=== PATIENT | female | born 2000 | race African-American/Black ===

== ENCOUNTER 2019-11-16 19:05 | Emergency (ER) | payer OTHER, SELFPAY ==
[2019-11-16 19:18] VITALS: BP 153/89; PULSE 94; RESP 16; TEMP 37.4; O2SAT 99
--- NOTE | 2019-11-16 19:59 | ED.GENADULT ---
HPI - General Adult General Chief complaint: Back Pain/Injury Stated complaint: back pain Time Seen by Provider: 11/16/19 19:59 Source: patient and RN notes reviewed Mode of arrival: ambulatory Limitations: no limitations History of Present Illness HPI narrative: 19-year-old female presents with complaints of diffused mid-upper back pain for 3 hours. Advil 400mg, last 1 hours ago with some relief. Denies new injuries or falls. Denies radiating pain, numbness, or tingling. Denies fever or chills. No upper or lower extremity pain or weakness. Exacerbating factors consist of prolong standing and bending. Denies nausea, vomiting, or abdominal pain. 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 No flank pain or hematuria or dysuria. Claribel denies being , LMP 11/05/19 and on control. The patient reports she have not been diagnosed with COVID-19. The patient reports she is not waiting for the results of a COVID-19 lab test. The patient reports she do not have fever, chills, weakness, fatigue, myalgia, or facial swelling. The patient reports she do not have a new or worsening cough or shortness of breath. Denies chest pain. The patient reports she do not have any rhinorrhea, congestion, sore throat, nausea, vomiting, abdominal pain, and diarrhea. Tolerating po intake well. Denies recent traveling. Denies concerns for COVID-19 or exposures been home since [id number] order except for essential household needs and return home. At this time, patient is not suspected of having COVID-19. Some parts of this dictation were generated by voice recognition software and may contain typographical and/or grammatical inaccuracies. Related Data Home Medications Medication Instructions Recorded Confirmed norethindrone ac-eth estradiol tablet 11/16/19 [ (21)] norethindrone ac-eth estradiol tablet 11/16/19 11/16/19 [ (21)] Allergies Allergy/AdvReac Type Severity Reaction Status Date / Time No Known Allergies Allergy Unverified 11/16/19 19:20 Review of Systems Review of Systems: Narrative: CONSTITUTIONAL: Denies fever, chills, sweats. EYES: Denies visual changes, redness, discharge. ENT: Denies rhinorrhea, congestion, sore throat, otalgia. CARDIOVASCULAR: Denies chest pain, palpitations, edema. RESPIRATORY: Denies dyspnea, wheezing, cough. GASTROINTESTINAL: Denies abdominal pain, nausea, vomiting, diarrhea. GENITOURINARY: Denies dysuria, hematuria, abnormal discharge. SKIN: Denies rash or itching. MUSCULOSKELETAL: Complains of diffused mid-upper back pain. Denies joint pain or myalgia. NEUROLOGIC: Denies numbness or focal weakness. PSYCHIATRIC: Denies anxiety or depression. All systems reviewed & are unremarkable except as noted in HPI and below. [facility] Past Medical History Medical History (Updated 11/17/19 @ 00:00 by Matthieu Santiago) No significant past medical history Surgical History Surgical History (Updated 11/16/19 @ 20:09 by JESÚS Piper) No significant past surgical history Family History Family History (Updated 11/16/19 @ 20:09 by JESÚS Piper) Father Unknown family medical history Mother Hypertension Social History Social History (Updated 11/16/19 @ 20:10 by JESÚS Piper) Smoking status: Never smoker Living arrangements: with family Gender identity (if verbalized by the patient): Female Comments At time of signature, agree with nurse past medical, surgical, social, and family history. There is no relevant family history pertinent to the presenting complaint. Exam Narrative: Exam Narrative: GENERAL: This is a well-nourished, well-developed patient, in no apparent distress. Talks in full sentences without deficits and ambulates with steady gait without dyspnea. HEAD: normocephalic, atraumatic. EYES: PERRL. Sclera clear/white. Vision is grossly
== END 2019-11-16 20:11 | disposition home or self-care (01) ==
PROVIDERS: Emergency Provider Nurse Practitioner Family; PCP Pediatrics
DX: M54.6 Pain in thoracic spine (principal); R03.0 Elevated blood-pressure reading, without diagnosis of hypertension
CPT/HCPCS: 99211; G0463

== ENCOUNTER 2020-06-16 18:55 | Emergency (ER) | payer OTHER, SELFPAY ==
--- NOTE | ~2020-06-16 | XR_ITS ---
EXAMINATION: XR hip LT min 2V INDICATION: Left hip pain TECHNIQUE: Two views of the left hip are obtained. COMPARISON: None available FINDINGS: Bone alignment is normal. There is no fracture. The soft tissues are unremarkable. IMPRESSION: 1. No acute osseous abnormality. Reviewed, dictated and finalized at location A. 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
--- NOTE | ~2020-06-16 | XR_ITS ---
EXAMINATION: XR ankle LT min 3V DATE: 06/16/2020 20:32 INDICATION: Left ankle pain TECHNIQUE: Anteroposterior, lateral, mortise, and additional oblique view of the ankle were obtained. COMPARISON: None. FINDINGS: There is no fracture, dislocation, or subluxation. The bones, soft tissues, and joint space s are normal. IMPRESSION: 1. No acute osseous abnormality. Reviewed, dictated and finalized at location A. 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
[2020-06-16 19:00] VITALS: BP 149/100; PULSE 104; RESP 18; TEMP 36.3; O2SAT 100
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
[2020-06-16] MEDS: KETOROLAC (*BKC) 60 MG/2 ML VIAL IM (19:59)
== END 2020-06-16 21:25 | disposition home or self-care (01) ==
PROVIDERS: Emergency Provider Nurse Practitioner; PCP Pediatrics
DX: M25.552 Pain in left hip (principal); M79.601 Pain in right arm; V49.50XA Passenger injured in collision with unspecified motor vehicles in traffic accident, initial encounter; W22.12XA Striking against or struck by front passenger side automobile airbag, initial encounter
CPT/HCPCS: 73502; 73610; 81025; 96372; 99284; J1885

== ENCOUNTER 2021-02-17 10:54 | Emergency (ER) | payer OTHER, SELFPAY ==
--- NOTE | ~2021-02-17 | XR_ITS ---
EXAMINATION: XR chest 2V DATE: 02/17/2021 11:52 INDICATION: Shortness of breath TECHNIQUE: PA and lateral views of the chest were obtained. COMPARISON: None FINDINGS: The lungs are clear with no focal airspace opacities, pulmonary edema, pleural effusion or pneumothor ax. The cardiomediastinal silhouette is normal. Mild lower thoracic levocurvature. IMPRESSION: 1. No acute cardiopulmonary disease. Reviewed, dictated and finalized at location A.
[2021-02-17 10:57] VITALS: BP 181/96; PULSE 108; RESP 18; TEMP 37.1; O2SAT 100
--- NOTE | 2021-02-17 11:11 | ECG_ITS ---
Measurements Intervals [place] Rate: 71 P: 31 IN: 133 QRS: 43 QRSD: 82 T: 24 QT: 348 QTc: 379 Interpretive Statements SINUS RHYTHM WITH SINUS ARRHYTHMIA DELAYED PRECORDIAL R/S TRANSITION BORDERLINE ECG Electronically Signed On 02-17-2021 12:18:14 CDT by Oswaldo Steward D.O.
--- NOTE | 2021-02-17 11:30 | ED.SOB ---
HPI - SOB/Dyspnea General Chief Complaint: Shortness of Breath/Dyspnea Stated Complaint: sob Time Seen by Provider: 02/17/21 11:11 Source: patient Mode of arrival: ambulatory Limitations: no limitations History of Present Illness HPI Narrative: This is a 20 year old female that presents to the ER for shortness of breath ongoing over the last week. Reports she constantly feels like she can't get a good deep breath. Reports some intermittent chest pain when she is having difficulty breathing. Denies fever, cough, or lower extremity edema. Related Data Home Medications Medication Instructions Recorded Confirmed norethindrone ac-eth estradiol tablet 06/16/20 [Junel ()] Allergies Allergy/AdvReac Type Severity Reaction Status Date / Time No Known Allergies Allergy Unverified 02/17/21 11:41 Review of Systems Review of Systems: CONSTITUTIONAL: Denies fever ENT: Denies rhinorrhea, congestion, sore throat CARDIOVASCULAR: Reports chest pain, and edema. RESPIRATORY: Reports dyspnea. Denies cough All systems reviewed & are unremarkable except as noted in HPI and below [facility] Past Medical History Medical History No significant past medical history Surgical History Surgical History No significant past surgical history Family History Family History Father Unknown family medical history Mother Hypertension Social History Social History (Updated 02/17/21 @ 11:32 by Tianna Romero PA-C) Smoking status: Never smoker Alcohol intake: never Substance use: current Substance use type: marijuana Gender identity (if verbalized by the patient): Female Exam Narrative: GENERAL: Well-appearing, obese, and in no acute distress. HEAD: Normocephalic, atraumatic. EYES: EOMI. ENT: Nares clear, no rhinorrhea or epistaxis. Mucous membranes moist. Oropharynx without tonsillar hypertrophy exudate or other lesions. Bilateral TMs pearly villegas non-bulging NECK: Supple. No adenopathy or masses. CHEST: Clear to auscultation. No respiratory distress. No wheezes rales or rhonchi HEART: Regular rate and rhythm. No murmur heard. Normal peripheral pulses. EXTREMITIES: Normal range of motion. No edema. SKIN: Warm, dry, no rash. NEURO: No focal deficits. Alert and oriented x3. PSYCH: Normal mood and affect Course Vital Signs Vital signs: Vital Signs Temperature 98.7 F 02/17/21 10:57 Pulse Rate 108 H 02/17/21 10:57 Respiratory Rate 18 02/17/21 10:57 Blood Pressure 181/96 H 02/17/21 10:57 Pulse Oximetry 100 02/17/21 10:57 Temperature 98.7 F 02/17/21 10:57 Pulse Rate 108 H 02/17/21 10:57 Respiratory Rate 18 02/17/21 10:57 Blood Pressure 181/96 H 02/17/21 10:57 Pulse Oximetry 100 02/17/21 10:57 MDM - SOB/Dyspnea MDM Narrative Medical decision making narrative: Patient presents to the emergency department for feelings of shortness of breath over the last couple of days. She is afebrile and nontoxic-appearing. Noted to be hypertensive on arrival to 181/96. Blood pressure down trended on its own. Most recent blood pressure 155/104. Patient does report possible history of hypertension. She is not on any medications for this currently. Instructed to continue to monitor this at home. Also mildly tachycardic upon arrival, this normalized without intervention. CBC and metabolic panel without concerning findings. EKG without concerning changes and baseline troponin is negative. BNP is normal. D-dimer is not elevated. Chest x-ray without acute cardiopulmonary abnormality. Bedside test is negative. Patient was updated on case findings. Oxygen saturation has remained normal on room air. SARS-CoV-2 will be sent. Patient was instructed to follow-up with primary care doctor. She is stable and felt appropriate
[2021-02-17 11:35] LABS: Basophils Percent Auto 0.4 % (0.2-1.2); Eosinophils Absolute Auto 0.1 K/mm3 (0-0.3); Eosinophils Percent Auto 1.6 % (0-4.4); Hematocrit 41.7 % (37.0-47.0); Hemoglobin 12.3 g/dL (12.0-15.0); Immature Granulocyte Absolute 0.02 K/mm3 (0.00-0.031); Immature Granulocyte Percent A 0.2 % (0-0.5); Lymphocytes Absolute Auto 2.49 K/mm3 (0.9-3.2); Lymphocytes Percent Auto 29.8 % (18.3-44.2); Mean Corpuscular HGB Conc 29.5 g/dl (32-36); Mean Corpuscular Hemoglobin 21.9 pg (26-34); Mean Corpuscular Volume 74.3 fl (80-100); Monocytes Absolute Auto 0.3 K/mm3 (0.1-0.6); Monocytes Percent Auto 3.9 % (2.6-8.5); Neutrophils Absolute Auto 5.4 K/mm3 (1.3-6.7); Neutrophils Percent Auto 64.1 % (45.5-73.1); Platelet Count Result 347 k/mm3 (150-375); Red Blood Count 5.61 M/mm3 (4.2-5.4); Red Cell Distribution Width 17.2 % (11.5-14.5); White Blood Count 8.4 K/mm3 (4.5-10.0)
[2021-02-17 11:47] LABS: Alanine Aminotransferase 19 U/L (4-35); Albumin Level 4.3 g/dL (3.5-5.1); Alkaline Phosphatase 80 U/L (38-126); Anion Gap 7 mmol/L (8-16); Aspartate Amino Transferase 25 U/L (14-36); Bilirubin,Total 0.4 mg/dL (0.2-1.3); Blood Urea Nitrogen 9 mg/dL (7-17); Calcium 9.5 mg/dL (8.4-10.2); Carbon Dioxide 25 mmol/L (22-30); Chloride 106 mmol/L (98-107); Estimated Glomerular Filt Rate > 60; Glucose 109 mg/dL (65-110); Partial Thromboplastin Time 31.2 SECONDS (22.3-36.8); Potassium 3.6 mmol/L (3.4-5.0); Sodium 138 mmol/L (137-145)
[2021-02-17 11:50] LABS: D Dimer 0.31 ug/mL (<0.48)
[2021-02-17 11:59] LABS: NT Pro B Type Natriuretic Pept 30 pg/mL (5-100); Troponin I < 0.012 ng/mL (0.000-0.034)
[2021-02-17 12:11] LABS: Platelet Estimate Adequate (Adequate)
[2021-02-17 13:21] VITALS: BP 135/78; PULSE 82; RESP 16; O2SAT 100
[2021-02-18 03:43] LABS: SARS-CoV-2 RNA PCR Negative
== END 2021-02-17 13:23 | disposition home or self-care (01) ==
PROVIDERS: Physician Assistant; Emergency Provider Emergency Medicine
DX: R06.00 Dyspnea, unspecified (principal); Z20.822 Contact with and (suspected) exposure to COVID-19; R94.31 Abnormal electrocardiogram [ECG] [EKG]
CPT/HCPCS: 36415; 71046; 80053; 81025; 83880; 84484; 85025; 85380; 85610; 85730; 93005; 99284; C9803; U0003; U0005

== ENCOUNTER 2021-06-26 16:44 | Emergency (ER) | payer OTHER, SELFPAY ==
[2021-06-26 16:53] VITALS: BP 153/91; PULSE 120; RESP 20; TEMP 36.6; O2SAT 100
[2021-06-26 18:46] VITALS: BP 148/68; PULSE 98; RESP 18; O2SAT 100
--- NOTE | 2021-06-26 18:47 | ED.FEMALEGU ---
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 Patient had a test positive for 6 weeks ago. Last menstrual period May 14, 2021. Patient is 1, para 0, abortions 0. Patient denies any vaginal bleeding or discharge. Currently patient is asymptomatic. 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 Patient would like to have a pelvic ultrasound today. Related Data Home Medications Medication Instructions Recorded Confirmed norethindrone ac-eth estradiol tablet 06/16/20 [ ()] Allergies Allergy/AdvReac Type Severity Reaction Status Date / Time No Known Allergies Allergy Unverified 06/26/21 18:45 Review of Systems Review of Systems: CONSTITUTIONAL: Denies fever, chills, or sweats. EYES: Denies visual changes, redness, or discharge. ENT: Denies rhinorrhea, congestion, sore throat, or otalgia. CARDIOVASCULAR: Denies chest pain, palpitations, or edema. RESPIRATORY: Denies cough or dyspnea. GASTROINTESTINAL: Denies abdominal pain, nausea, vomiting, or diarrhea. GENITOURINARY: Denies dysuria or hematuria. SKIN: Denies rash or itching. MUSCULOSKELETAL: Denies back pain, joint pain, or myalgia. NEUROLOGIC: Denies headache, numbness, or weakness. PSYCHIATRIC: Denies anxiety or depression. [facility] Past Medical History Medical History No significant past medical history Surgical History Surgical History No significant past surgical history Family History Family History Father Unknown family medical history Mother Hypertension Social History Social History Smoking status: Never smoker Alcohol intake: never Substance use: current Substance use type: marijuana Gender identity (if verbalized by the patient): Female Exam Narrative: General appearance: Well-developed, well-nourished Skin: Normal color Head: Normocephalic, nontraumatic Eyes: Clear conjunctiva ENT: Oropharynx normal, ears normal, nose normal Neck: Supple, nontender Chest and respiratory: Airway patent, no respiratory distress, no accessory muscle use Heart: Regular rate/rhythm Abdomen: Soft, nontender, no organomegaly, quiet bowel sounds Vascular: Normal peripheral pulses, normal capillary refill. 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 RUNNER is normal as tested, no gross motor deficit Course Course Emergency Course: Stable Vital Signs Vital signs: Vital Signs Temperature 36.6 C 06/26/21 16:53 Pulse Rate 120 H 06/26/21 16:53 Respiratory Rate 20 06/26/21 16:53 Blood Pressure 153/91 H 06/26/21 16:53 Pulse Oximetry 100 06/26/21 16:53 Temperature 36.6 C 06/26/21 16:53 Pulse Rate 98 06/26/21 18:46 Respiratory Rate 18 06/26/21 18:46 Blood Pressure 148/68 H 06/26/21 18:46 Pulse Oximetry 100 06/26/21 18:46 MDM - Female Genitourinary MDM Narrative Medical decision making narrative: related symptoms is my concern Differential Diagnosis Differential diagnosis: Likely urinary tract infection Lab Data Result diagrams: 06/26/21 20:29
[2021-06-26 20:42] LABS: Add Urine Microscopic? YES; Appearance Urine Clear (Clear); Bilirubin Urine Negative (Negative); Blood Urine Negative (Negative); Color Urine Yellow (Yellow); Glucose Urine UA Negative (Negative); Ketones Urine Trace mg/dL (Negative); Leukocyte Esterase Ur Trace LEU/UL (Negative); Mucus Urine Few /lpf; Nitrate Urine Negative (Negative); Protein Urine Negative (Negative); Specific Grav Ur 1.024 (1.001-1.035); Squamous Epithelial Cell Urine Few /hpf (Few); Urobilinogen Urine Negative mg/dL (<2.0); WBC Urine 0-3 /hpf
[2021-06-26 20:46] LABS: Alanine Aminotransferase 12 U/L (4-35); Albumin Level 4.2 g/dL (3.5-5.1); Alkaline Phosphatase 70 U/L (38-126); Anion Gap 11 mmol/L (8-16); Aspartate Amino Transferase 18 U/L (14-36); Bilirubin,Total 0.4 mg/dL (0.2-1.3); Blood Urea Nitrogen 9 mg/dL (7-17); Calcium 8.9 mg/dL (8.4-10.2); Carbon Dioxide 21 mmol/L (22-30); Chloride 104 mmol/L (98-107); Estimated Glomerular Filt Rate > 60; Glucose 91 mg/dL (65-110); Potassium 3.9 mmol/L (3.4-5.0); Sodium 136 mmol/L (137-145)
== END 2021-06-26 21:17 | disposition home or self-care (01) ==
PROVIDERS: Emergency Provider Emergency Medicine
DX: O26.899 Other specified pregnancy related conditions, unspecified trimester (principal); R10.30 Lower abdominal pain, unspecified; Z3A.00 Weeks of gestation of pregnancy not specified
CPT/HCPCS: 36415; 80053; 81001; 81025; 99283

== ENCOUNTER 2021-07-08 14:19 | Outpatient (CLI) | payer BC, OTHER, SELFPAY ==
--- NOTE | ~2021-07-08 | US_ITS ---
US OB <=14 wk fetus w TV DATE: 07/08/2021 15:47 INDICATION: viability and age determination TECHNIQUE: Real-time imaging and Doppler analysis transabdominal and transvaginal approaches COMPARISON: None FINDINGS: The uterus measures 8.3 cm height, 4 cm anteroposterior and 5.8 cm transverse dimension. The central endometrial echo complex measures up to 23 mm. There is a gestational sac within the uter ine fundus. Yolk sac and pole are detected. heart rate of 121 bpm. [place]-rump length averages 0.54 cm, consistent with 6 weeks 2 days +/- 4 days estimated gestational a ge with ANDIE of 03/01/2022. Right ovary 3.1 x 2.2 x 2 cm, 1.2 cm cyst. Left ovary 2.4 x 2 x 1.7 cm. No pelvic mass or abnormal free pelvic fluid collection is evident. There is vascular flow to both ovaries. IMPRESSION: Estimated gestational age of 6 weeks 2 days +/- 4 days; ANDIE: 03/01/2022 Reviewed, dictated and finalized at Location A. Reviewed, dictated and finalized at location A. 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
== END 2021-07-08 14:20 | disposition home or self-care (01) ==
LOC: ANHIMG 14:25
PROVIDERS: Visit Provider Obstetrics & Gynecology
DX: O36.80X0 Pregnancy with inconclusive fetal viability, not applicable or unspecified (principal); Z3A.01 Less than 8 weeks gestation of pregnancy
CPT/HCPCS: 76801; 76817

== ENCOUNTER 2021-10-10 15:20 | Outpatient (CLI) | payer OTHER, SELFPAY ==
[2021-10-10 19:12] LABS: Hepatitis B Surface Antigen Negative (Negative)
[2021-10-10 19:29] LABS: Hepatitis C Virus Antibody Negative (Negative)
[2021-10-10 20:20] LABS: HIV 1/2 Ab P24 Ag Result Negative (Negative)
[2021-10-11 12:22] LABS: Rapid Plasma Reagin Non-Reactive (NonReactive)
== END 2021-10-10 15:21 | disposition home or self-care (01) ==
LOC: ANHLAB 15:22
PROVIDERS: Visit Provider Obstetrics & Gynecology
DX: Z20.2 Contact with and (suspected) exposure to infections with a predominantly sexual mode of transmission (principal)
CPT/HCPCS: 36415; 86592; 86703; 86803; 87340; G0432